=== PATIENT | male | born 1985 | race Two or more races ===

== ENCOUNTER 2018-04-08 19:16 | Emergency (ER) | payer MEDICAID ==
[~2018-04-08] VITALS: Ht 172.7 cm; Wt 90.7 kg
[2018-04-08 19:37] VITALS: BP 153/96
[2018-04-08] MEDS ORDERED: cefTRIAXone 1GM/10ml IVPUSH 10 ML IV ONE (19:45)
[2018-04-08] MEDS ORDERED: TETANUS-DIPTH-ACEL PERTUSSIS 0.5ML SYRG IM ONE (19:45)
[2018-04-08] MEDS ORDERED: fentaNYL CITRATE 100 MCG/2 ML VL ONE (19:45)
[2018-04-08] MEDS ORDERED: fentaNYL CITRATE 100 MCG/2 ML VL IV ONE (20:00)
== END 2018-04-08 19:52 | disposition short-term general hospital (02) ==
LOC: ER 19:16
DX: S31.109A Unspecified open wound of abdominal wall, unspecified quadrant without penetration into peritoneal cavity, initial encounter (principal); X95.8XXA Assault by other firearm discharge, initial encounter; Y93.89 Activity, other specified; Y99.8 Other external cause status; Y92.89 Other specified places as the place of occurrence of the external cause
CPT/HCPCS: 90471; 90715; 96374; 96375; 99285; J0696; J3010

== ENCOUNTER 2022-04-16 19:29 | Emergency (ER) | payer MEDICAID ==
[~2022-04-16] VITALS: Ht 172.7 cm; Wt 100.0 kg
[2022-04-17 01:06] VITALS: BP 132/76
== END 2022-04-17 02:46 | disposition home or self-care (01) ==
LOC: ER 19:29
DX: R59.0 Localized enlarged lymph nodes (principal)